=== PATIENT | female | born 1980 | race Caucasian/White ===

== ENCOUNTER 2017-03-29 17:43 | Emergency (ER) | payer BC, OTHER, SELFPAY ==
[~2017-03-29] VITALS: Ht 162.6 cm; Wt 92.0 kg
[2017-03-29 20:23] VITALS: BP 104/60
== END 2017-03-29 21:13 | disposition home or self-care (01) ==
LOC: ED 21:00
DX: O26.891 Other specified pregnancy related conditions, first trimester (principal); M75.82 Other shoulder lesions, left shoulder; R05 Cough; R10.2 Pelvic and perineal pain; Z3A.09 9 weeks gestation of pregnancy
CPT/HCPCS: 36415; 76801; 81001; 84702; 85379; 87086; 93005; 99285

== ENCOUNTER 2017-10-03 15:14 | Outpatient (CLI) | payer BC ==
[~2017-10-03] VITALS: Ht 162.6 cm; Wt 87.7 kg
== END 2017-10-03 16:25 | disposition home or self-care (01) ==
LOC: LDOP 15:14
PROVIDERS: ATTEND Obstetrics & Gynecology Maternal & Fetal Medicine
DX: O36.4XX0 Maternal care for intrauterine death, not applicable or unspecified (principal); Z3A.36 36 weeks gestation of pregnancy
CPT/HCPCS: 59025; 99201; G0463

== ENCOUNTER 2017-10-10 11:33 | Observation (INO) | payer BC ==
[~2017-10-10] VITALS: Ht 162.6 cm; Wt 87.7 kg
[2017-10-10] MEDS ORDERED: TERBUTALINE 1 MG/ML, 1ML ONE (11:37)
[2017-10-10] MEDS ORDERED: TERBUTALINE 1 MG/ML, 1ML SQ PRN (12:00)
== END 2017-10-10 15:00 | disposition home or self-care (01) ==
LOC: LDIP 11:33
PROVIDERS: ADMIT Obstetrics & Gynecology Maternal & Fetal Medicine; ATTEND Obstetrics & Gynecology Maternal & Fetal Medicine
DX: O32.3XX0 Maternal care for face, brow and chin presentation, not applicable or unspecified (principal); Z3A.37 37 weeks gestation of pregnancy
CPT/HCPCS: 59025; 59412; 76815; G0378; 99211; G0463

== ENCOUNTER 2017-10-22 09:01 | Inpatient (IN) | payer BC ==
[~2017-10-22] VITALS: Ht 162.6 cm; Wt 87.7 kg
[2017-10-23] MEDS ORDERED: OXYTOCIN 30U/ 0.9% NaCL 500ML 500 ML IV SCH (08:07)
[2017-10-23] MEDS ORDERED: LACTATED RINGERS 1,000 ML IV SCH (08:07)
[2017-10-23 08:18] VITALS: BP 119/71
[2017-10-23] MEDS ORDERED: METOCLOPRAMIDE 5 MG/ML, 2ML ONE (08:22)
[2017-10-23] MEDS ORDERED: OXYTOCIN 30U/ 0.9% NaCL 500ML 500 ML ONE (08:22)
[2017-10-23] MEDS ORDERED: SODIUM CITRATE/CITRIC ACID 30 ML UDC ONE (08:22)
[2017-10-23] MEDS ORDERED: NEWBORN KIT ONE (08:22)
[2017-10-23 08:25] LABS: BASOPHILS # (AUTO) 0.04 x10^3/uL (0-0.1); BASOPHILS % (AUTO) 0 % (0-1); EOSINOPHILS # (AUTO) 0.14 x10^3/uL (0-0.4); EOSINOPHILS % (AUTO) 1 % (1-7); LYMPHOCYTES # (AUTO) 2.64 x10^3/uL (1-3.4); LYMPHOCYTES % (AUTO) 22 % (22-44); MD NO; MEAN CORPUSCULAR HEMOGLOBIN 28.8 pg (27.0-34.8); MEAN CORPUSCULAR HGB CONC 34.1 g/dL (32.4-35.8); MEAN CORPUSCULAR VOLUME 84.4 fL (80-100); MEAN PLATELET VOLUME 10.9 fL (7.4-10.4); MONOCYTES # (AUTO) 1.16 x10^3/uL (0.2-0.8); MONOCYTES % (AUTO) 10 % (2-9); NEUTROPHILS # (AUTO) 7.94 x10^3/uL (1.8-6.8); NEUTROPHILS % (AUTO) 67 % (42-75); PLATELET COUNT 212 x10^3/uL (130-400); RED BLOOD COUNT 3.84 x10^6/uL (3.82-5.3); RED CELL DISTRIBUTION WIDTH 13.2 % (9.6-15.2)
[2017-10-23] MEDS ORDERED: METOCLOPRAMIDE 5 MG/ML, 2ML IV ONE (08:30)
[2017-10-23] MEDS ORDERED: LACTATED RINGERS 1,000 ML IVBOLUS ONE (08:30)
[2017-10-23] MEDS ORDERED: SODIUM CITRATE/CITRIC ACID 30 ML UDC PO ONE (08:30)
[2017-10-23] MEDS ORDERED: PROMETHAZINE 25 MG/ML, 1ML IV PRN (09:30)
[2017-10-23] MEDS ORDERED: FENTANYL PF 100 MCG/2ML IV PRN (09:30)
[2017-10-23] MEDS ORDERED: EPHEDRINE 50 MG/ML, 1ML IVPush PRN (09:30)
[2017-10-23] MEDS ORDERED: HYDROcodone/APAP 7.5-325MG/15ML UDC PO PRN (09:30)
[2017-10-23] MEDS ORDERED: ONDANSETRON 2MG/ML, 2ML IVPush PRN (09:30)
[2017-10-23] MEDS ORDERED: ALBUTEROL SULFATE 2.5 MG/3 ML NPPB PRN (09:30)
[2017-10-23] MEDS ORDERED: LABETALOL 5MG/ML, 20ML IV PRN (09:30)
[2017-10-23] MEDS ORDERED: hydrALAzine 20 MG/ML, 1ML IV PRN (09:30)
[2017-10-23] MEDS ORDERED: HYDROmorphone 1 MG/ML, 1ML IV PRN (09:30)
[2017-10-23] MEDS ORDERED: OXYcodone 5 MG/5 ML ORAL.SOL UDC PO PRN (09:30)
[2017-10-23] MEDS ORDERED: MIDAZOLAM 1 MG/ML, 2ML IV PRN (09:30)
[2017-10-23] MEDS ORDERED: FENTANYL PF 100 MCG/2ML ONE (09:39)
[2017-10-23] MEDS ORDERED: EPHEDRINE 50 MG/ML, 1ML ONE (09:39)
[2017-10-23] MEDS ORDERED: DEXAMETHASONE 4 MG/ML, 1ML ONE (09:39)
[2017-10-23] MEDS ORDERED: ONDANSETRON 2MG/ML, 2ML ONE (09:39)
[2017-10-23] MEDS ORDERED: CEFAZOLIN 1,000 MG ONE (09:39)
[2017-10-23] MEDS ORDERED: KETOROLAC 30 MG/1 ML ONE (09:39)
[2017-10-23] MEDS ORDERED: OXYTOCIN 10 UNITS/ML, 1ML ONE (09:39)
[2017-10-23] MEDS ORDERED: PHENYLEPHRINE 10 MG/ML ONE (09:39)
[2017-10-23] MEDS ORDERED: GLYCOPYRROLATE 0.2MG/1ML, 5ML ONE (09:46)
[2017-10-23] MEDS: KETOROLAC 30 MG/1 ML IV SCH ×3 (10:45→23:02)
[2017-10-23] MEDS: OXYTOCIN 30U/ 0.9% NaCL 500ML 500 ML IV SCH ×2 (10:54→20:54)
[2017-10-23] MEDS: LACTATED RINGERS 1,000 ML IV SCH ×4 (10:54→20:54)
[2017-10-23] MEDS ORDERED: METHYLERGONOVINE 0.2 MG/ML IM PRN (11:00)
[2017-10-23] MEDS ORDERED: morphine SULFATE 10 MG/ML, 1ML IVPush PRN ×2 (11:00)
[2017-10-23] MEDS ORDERED: ONDANSETRON 2MG/ML, 2ML IV PRN (11:00)
[2017-10-23] MEDS ORDERED: CARBOPROST TROMETHAMINE 250 MCG/ML, 1ML IM PRN (11:00)
[2017-10-23] MEDS ORDERED: MISOPROSTOL 200 MCG TABLET PR PRN (11:00)
[2017-10-23] MEDS ORDERED: ACETAMINOPHEN 325 MG TABLET PO PRN (11:00)
[2017-10-23] MEDS ORDERED: MEASLES,MUMPS&RUBELLA VACC/PF 0.5 ML SQ-VACC PRN (11:00)
[2017-10-23 13:40] VITALS: BP 110/73
[2017-10-23] MEDS: OXYcodone/APAP 5/325MG TABLET PO PRN ×2 (13:40→19:57)
[2017-10-23 18:00] VITALS: BP 105/67
[2017-10-23 18:05] LABS: MEAN CORPUSCULAR HEMOGLOBIN 29.2 pg (27.0-34.8); MEAN CORPUSCULAR HGB CONC 34.2 g/dL (32.4-35.8); MEAN CORPUSCULAR VOLUME 85.2 fL (80-100); MEAN PLATELET VOLUME 11.3 fL (7.4-10.4); PLATELET COUNT 191 x10^3/uL (130-400); RED BLOOD COUNT 3.33 x10^6/uL (3.82-5.3)
[2017-10-23 18:25] LABS: BASOPHILS # (AUTO) 0.01 x10^3/uL (0-0.1); BASOPHILS % (AUTO) 0 % (0-1); EOSINOPHILS % (AUTO) 0 % (1-7); LYMPHOCYTES # (AUTO) 1.39 x10^3/uL (1-3.4); LYMPHOCYTES % (AUTO) 7 % (22-44); MD MORPH REVIEW ONLY; MONOCYTES # (AUTO) 1.15 x10^3/uL (0.2-0.8); MONOCYTES % (AUTO) 6 % (2-9); NEUTROPHILS # (AUTO) 18.38 x10^3/uL (1.8-6.8); NEUTROPHILS % (AUTO) 88 % (42-75)
[2017-10-23 18:26] LABS: <PLATELET ESTIMATE> ADEQUATE; <RBC MORPHOLOGY> NORMAL; LARGE PLATELETS 1+; TOXIC GRAN 1+
[2017-10-23 19:40] VITALS: BP 110/65
[2017-10-23] MEDS: DOCUSATE 100 MG CAPSULE PO PRN (19:57)
[2017-10-24 00:10] VITALS: BP 103/64
[2017-10-24] MEDS: OXYcodone/APAP 5/325MG TABLET PO PRN ×5 (00:10→23:08)
[2017-10-24] MEDS: SIMETHICONE 80 MG CHEW TAB PO PRN ×2 (00:10→12:12)
[2017-10-24] MEDS: LACTATED RINGERS 1,000 ML IV SCH ×5 (02:54→18:54)
[2017-10-24 04:45] VITALS: BP 104/68
[2017-10-24] MEDS: KETOROLAC 30 MG/1 ML IV SCH ×4 (04:48→23:07)
[2017-10-24] MEDS ORDERED: RHOGAM FROM BLOOD BANK 1 NOTE EA IM/IV ONE (05:00)
[2017-10-24] MEDS: OXYTOCIN 30U/ 0.9% NaCL 500ML 500 ML IV SCH ×2 (06:54→16:04)
[2017-10-24 07:54] VITALS: BP 102/66
[2017-10-24] MEDS: DOCUSATE 100 MG CAPSULE PO PRN ×2 (08:09→23:07)
[2017-10-24] MEDS: PRENATAL VIT/IRON/FA 1 EACH TABLET PO SCH (08:10)
[2017-10-24 20:00] VITALS: BP 100/67
[2017-10-25] MEDS: OXYTOCIN 30U/ 0.9% NaCL 500ML 500 ML IV SCH (02:54)
[2017-10-25] MEDS: LACTATED RINGERS 1,000 ML IV SCH ×2 (02:54)
[2017-10-25] MEDS: KETOROLAC 30 MG/1 ML IV SCH (05:01)
[2017-10-25] MEDS: DOCUSATE 100 MG CAPSULE PO PRN (08:33)
[2017-10-25] MEDS: PRENATAL VIT/IRON/FA 1 EACH TABLET PO SCH (08:33)
[2017-10-25] MEDS: OXYcodone/APAP 5/325MG TABLET PO PRN (08:33)
[2017-10-25 08:35] VITALS: BP 106/68
[2017-10-25] MEDS ORDERED: IBUPROFEN 600 MG TABLET PO PRN (11:00)
[2017-10-25] MEDS ORDERED: IBUP-1222 PO (11:42)
[2017-10-25] MEDS ORDERED: OXYC-302 PO (11:43)
== END 2017-10-25 12:45 | disposition home or self-care (01) | DRG 766 ==
LOC: LDIP 10-23 08:02 → 2NW 10-23 12:50
PROVIDERS: ADMIT Obstetrics & Gynecology Maternal & Fetal Medicine; ATTEND Obstetrics & Gynecology Maternal & Fetal Medicine
PROC: 0UB70ZZ Excision of Bilateral Fallopian Tubes, Open Approach (ICD-10-PCS; principal; 2017-10-23)
PROC: 10D00Z1 Extraction of Products of Conception, Low, Open Approach (ICD-10-PCS; 2017-10-23)
PROC: 30233S1 Transfusion of Nonautologous Globulin into Peripheral Vein, Percutaneous Approach (ICD-10-PCS; 2017-10-24)
DX: O32.1XX0 Maternal care for breech presentation, not applicable or unspecified (principal); Z37.0 Single live birth; Z30.2 Encounter for sterilization; Z3A.39 39 weeks gestation of pregnancy
CPT/HCPCS: 36415; 85025; 85461; 86850; 86900; 88302; J0690; J1100; J1885; J2405; J2790; J3010; J3490; J2370; J2590; J7120

== ENCOUNTER 2017-11-10 21:45 | Emergency (ER) | payer BC ==
[~2017-11-10] VITALS: Ht 165.1 cm; Wt 81.3 kg
[~2017-11-10 21:45] MED LIST: IBUP-1222 PO; OXYC-302 PO
[2017-11-10 22:53] LABS: BASOPHILS # (AUTO) 0.05 x10^3/uL (0-0.1); BASOPHILS % (AUTO) 1 % (0-1); EOSINOPHILS # (AUTO) 0.16 x10^3/uL (0-0.4); EOSINOPHILS % (AUTO) 1 % (1-7); LYMPHOCYTES # (AUTO) 3.41 x10^3/uL (1-3.4); LYMPHOCYTES % (AUTO) 30 % (22-44); MD NO; MEAN CORPUSCULAR HEMOGLOBIN 28.9 pg (27.0-34.8); MEAN CORPUSCULAR HGB CONC 33.7 g/dL (32.4-35.8); MEAN PLATELET VOLUME 9.1 fL (7.4-10.4); MONOCYTES # (AUTO) 1.18 x10^3/uL (0.2-0.8); MONOCYTES % (AUTO) 10 % (2-9); NEUTROPHILS # (AUTO) 6.75 x10^3/uL (1.8-6.8); NEUTROPHILS % (AUTO) 58 % (42-75); PLATELET COUNT 436 x10^3/uL (130-400); RED BLOOD COUNT 3.74 x10^6/uL (3.82-5.3); RED CELL DISTRIBUTION WIDTH 13.7 % (9.6-15.2)
[2017-11-10 23:05] LABS: ALANINE AMINOTRANSFERASE 30 U/L (12-78); ALBUMIN 3.3 g/dL (3.4-5.0); ANION GAP 10 mmol/L (5-15); CALCIUM 8.6 mg/dL (8.5-10.1); CHLORIDE 110 mmol/L (98-107); CREATININE 1.09 mg/dL (0.55-1.02)
[2017-11-10 23:09] LABS: ALKALINE PHOSPHATASE 121 U/L (45-117); BILIRUBIN,TOTAL 0.3 mg/dL (0.2-1.0); TOTAL PROTEIN 7.7 g/dL (6.4-8.2)
[2017-11-10 23:11] LABS: CULTURE INDICATED? YES; MICROSCOPIC INDICATED
[2017-11-10] MEDS ORDERED: OXYcodone/APAP 5/325MG TABLET ONE (23:22)
[2017-11-10] MEDS ORDERED: OXYcodone/APAP 5/325MG TABLET PO ONE (23:30)
[2017-11-11] MEDS ORDERED: DIPHENHYDRAMINE 25 MG CAPSULE ONE (00:51)
[2017-11-11] MEDS ORDERED: DIPHENHYDRAMINE 25 MG CAPSULE PO ONE (01:00)
[2017-11-11 01:59] VITALS: BP 123/60
== END 2017-11-11 02:02 | disposition home or self-care (01) ==
LOC: ED 23:31
DX: O90.89 Other complications of the puerperium, not elsewhere classified (principal); N93.8 Other specified abnormal uterine and vaginal bleeding; R10.2 Pelvic and perineal pain
CPT/HCPCS: 36415; 76856; 80053; 81001; 84702; 85025; 87086; 99285; Q0163

== ENCOUNTER 2017-11-30 13:29 | Day surgery (SDC) | payer BC ==
[2017-11-29 10:48] LABS: MICROSCOPIC AUTO
[2017-11-29 10:50] LABS: CULTURE INDICATED? NO
[2017-11-29 10:51] LABS: BASOPHILS # (AUTO) 0.02 x10^3/uL (0-0.1); BASOPHILS % (AUTO) 0 % (0-1); EOSINOPHILS # (AUTO) 0.17 x10^3/uL (0-0.4); EOSINOPHILS % (AUTO) 2 % (1-7); LYMPHOCYTES # (AUTO) 2.57 x10^3/uL (1-3.4); LYMPHOCYTES % (AUTO) 31 % (22-44); MD NO; MEAN CORPUSCULAR HEMOGLOBIN 28.9 pg (27.0-34.8); MEAN CORPUSCULAR HGB CONC 33.6 g/dL (32.4-35.8); MEAN PLATELET VOLUME 9.3 fL (7.4-10.4); MONOCYTES # (AUTO) 0.94 x10^3/uL (0.2-0.8); MONOCYTES % (AUTO) 12 % (2-9); NEUTROPHILS # (AUTO) 4.48 x10^3/uL (1.8-6.8); NEUTROPHILS % (AUTO) 55 % (42-75); PLATELET COUNT 254 x10^3/uL (130-400); RED BLOOD COUNT 3.97 x10^6/uL (3.82-5.3); RED CELL DISTRIBUTION WIDTH 14.1 % (9.6-15.2)
[~2017-11-30] VITALS: Ht 162.6 cm; Wt 79.5 kg
[~2017-11-30 13:29] MED LIST changes: +DEXAMETHASONE 4 MG/ML, 1ML ONE; +IBUP200C8 PO; +ONDANSETRON 2MG/ML, 2ML ONE; +PRENATAL PO; +PROPOFOL 10 MG/ML, 20ML ONE; +SUCCINYLCHOLINE 20 MG/ML, 10ML ONE
[2017-11-30] MEDS ORDERED: LACTATED RINGERS 1,000 ML IV SCH (14:27)
[2017-11-30] MEDS ORDERED: OXYTOCIN 10 UNITS/ML, 1ML ONE (15:15)
[2017-11-30] MEDS ORDERED: MISOPROSTOL 200 MCG TABLET ONE (15:15)
[2017-11-30] MEDS ORDERED: METHYLERGONOVINE 0.2 MG/ML IM ONE (15:15)
[2017-11-30] MEDS ORDERED: SILVER NITRATE STICK TP ONE (15:15)
[2017-11-30] MEDS ORDERED: MIDAZOLAM 1 MG/ML, 2ML ONE (15:41)
[2017-11-30] MEDS ORDERED: FENTANYL PF 100 MCG/2ML ONE ×2 (15:42→16:22)
[2017-11-30] MEDS ORDERED: OXYcodone 5 MG/5 ML ORAL.SOL UDC ONE (16:22)
[2017-11-30] MEDS ORDERED: ALBUTEROL SULFATE 2.5 MG/3 ML NPPB PRN (16:30)
[2017-11-30] MEDS ORDERED: PROMETHAZINE 25 MG/ML, 1ML IV PRN (16:30)
[2017-11-30] MEDS ORDERED: hydrALAzine 20 MG/ML, 1ML IV PRN (16:30)
[2017-11-30] MEDS ORDERED: HYDROmorphone 1 MG/ML, 1ML IV PRN (16:30)
[2017-11-30] MEDS ORDERED: ONDANSETRON 2MG/ML, 2ML IVPush PRN (16:30)
[2017-11-30] MEDS ORDERED: OXYcodone 5 MG/5 ML ORAL.SOL UDC PO PRN (16:30)
[2017-11-30] MEDS ORDERED: MEPERIDINE/PF 25MG/0.5ML IVPush PRN (16:30)
[2017-11-30] MEDS ORDERED: FENTANYL PF 100 MCG/2ML IV PRN (16:30)
[2017-11-30] MEDS ORDERED: LABETALOL 5MG/ML, 20ML IV PRN (16:30)
[2017-11-30] MEDS ORDERED: KETOROLAC 30 MG/1 ML IV PRN (16:30)
[2017-11-30] MEDS ORDERED: METOCLOPRAMIDE 5 MG/ML, 2ML IV PRN (16:30)
[2017-11-30] MEDS ORDERED: KETOROLAC 30 MG/1 ML ONE (16:42)
== END 2017-11-30 22:49 ==
LOC: OR 13:29 → 4NOR 17:10 → OR 22:49
PROVIDERS: ATTEND Obstetrics & Gynecology Maternal & Fetal Medicine
DX: O73.1 Retained portions of placenta and membranes, without hemorrhage (principal); Z98.51 Tubal ligation status
CPT/HCPCS: 36415; 58120; 81001; 84703; 85025; 86850; 86870; 86900; 86922; 88305; J0330; J1100; J1885; J2250; J2405; J2704; J3010; J7120; 86923; J2210; J2590